=== PATIENT | female | born 1985 | race Two or more races ===

== ENCOUNTER 2023-01-15 22:28 | Emergency (ER) | payer MEDICAID, OTHER ==
[~2023-01-15] VITALS: Ht 160 cm; Wt 86.7 kg
[2023-01-15 22:44] VITALS: TEMP 97.6
[2023-01-15 23:36] LABS: Basophils # (auto) 0.1 10 ^3/uL (0-0.2); Basophils % (auto) 1.1 % (0.0-2.0); Eosinophils # (auto) 0.2 10 ^3/uL (0-0.8); Hematocrit 38.4 % (36.0-46.0); Hemoglobin 13.1 g/dL (12.2-16.2); Lymphocytes # (auto) 3.7 10 ^3/uL (0.4-5.4); Lymphocytes % (auto) 39.7 % (10.0-50.0); Mean Corpuscular Hemoglobin 29.8 pg (28.0-32.0); Mean Corpuscular Volume 87.6 fL (80.0-100.0); Monocytes # (auto) 0.9 10 ^3/uL (0-1.3); Monocytes % (auto) 10.1 % (0.0-12.0); Neutrophils # (auto) 4.4 10 ^3/uL (1.6-8.6); Neutrophils % (auto) 47.1 % (37.0-80.0); Red Blood Cells 4.39 10^6/uL (4.0-5.20); Red Cell Distribution Width 13.7 % (11.8-14.3); White Blood Cell 9.3 10^3/uL (4.4-10.8)
[2023-01-15 23:58] LABS: Alanine Aminotransferase 37 U/L (7-40); Albumin 4.3 g/dL (3.2-4.8); Alkaline Phosphatase 64 U/L (46-116); Anion Gap 7 (5-15); Aspartate Aminotransferase 10 U/L (13-40); BUN/Creatinine Ratio 15.4 (10.0-20.0); Blood Urea Nitrogen 10 mg/dL (9-23); Calcium 9.1 mg/dL (8.7-10.4); Carbon Dioxide 25 mmol/L (20-30); Chloride 107 mmol/L (98-107); Glucose 95 mg/dL (74-106); Potassium 3.8 mmol/L (3.5-5.1); Sodium 139 mmol/L (136-145)
[2023-01-15 23:59] LABS: Bilirubin, Total 0.2 mg/dL (0.2-1.0); Total Protein 6.7 g/dL (5.7-8.2)
[2023-01-16] MEDS ORDERED: IBUP1TAB5 PO (03:37)
[2023-01-16] MEDS ORDERED: ZOFR4T PO (03:37)
[2023-01-16] MEDS ORDERED: KETOROLAC TROMETH 60MG/2ML VIAL IM ONE (03:45)
[2023-01-16] MEDS ORDERED: HYDROcodone-ACET 7.5/325MG TAB PO ONE (03:45)
[2023-01-16] MEDS ORDERED: PROCHLORPERAZINE EDISYLATE 5 MG/ML 2ML VIAL IM ONE (03:45)
[2023-01-16 04:00] VITALS: BP 136/78; PULSE 78; RESP 18; O2SAT 97
== END 2023-01-16 05:08 | disposition home or self-care (01) ==
LOC: ER 22:28
DX: R51.9 Headache, unspecified (principal); I10 Essential (primary) hypertension
CPT/HCPCS: 36415; 70450; 80053; 84484; 85025; 93005; 96372; 99285; J0780; J1885